=== PATIENT | male | born 1950 | race Caucasian/White ===

== ENCOUNTER → 2020-03-28 | Outpatient (CLI) | payer OTHER ==
[2020-03-28 09:30] LABS: African American GFR (CKD) >90 (>60 ml/min/1.73 sqM); Blood Urea Nitrogen 18 mg/dL (9-20); Non-African American GFR(CKD) 89 (>60 ml/min/1.73 sqM)
--- NOTE | 2020-03-28 10:24 | CT ---
EXAMINATION TYPE: CT chest w con DATE OF EXAM: 03/28/2020 COMPARISON: None HISTORY: asbestos exposure CT DLP: 300.7 mGycm Automated exposure control for dose reduction was used. CONTRAST: CT scan of the chest is performed with IV Contrast, patient injected with 100 mL of Isovue 300. FINDINGS: LUNGS: The lungs are grossly clear, there is no concerning parenchymal mass or nodule identified. T here is no pleural effusion or pneumothorax seen. The tracheobronchial tree is patent. Biapical pleu ral thickening. No definite calcifications. MEDIASTINUM: There are no greater than 1 cm hilar or mediastinal lymph nodes. No pericardial effusi on is seen. Heart size prominent. Coronary artery calcification noted. Atherosclerotic change of the aorta which is of normal caliber. OTHER: Hypertrophic and degenerative change of the vertebral column. IMPRESSION: 1. There is mild pleural thickening but no calcifications. Pleural thickening can also be associated with the asbestos exposure even in the absence of calcification. No evidence of chronic interstitial lung disease. 2. Coronary artery calcification.
== END | disposition home or self-care (01) ==
LOC: RADCTMAIN 08:39
PROVIDERS: ATTEND Nurse Practitioner Adult Health
DX: J98.4 Other disorders of lung (principal); I25.10 Atherosclerotic heart disease of native coronary artery without angina pectoris; Z77.090 Contact with and (suspected) exposure to asbestos
CPT/HCPCS: 82565; 84520; 71260; 36415; Q9967